=== PATIENT | female | born 1970 | race Hispanic/Latino ===

== ENCOUNTER → 2020-06-24 | Outpatient (CLI) | payer OTHER ==
[~2020-06-24] MED LIST: CALCIUM CARBON500 MG PO; LEVOTHYROXINE50 MCG PO; LIPITOR10 MG PO; METFORMIN HCL500 MG PO; MULTI-VITAMIN1 EACH PO
== END ==
LOC: US 12:59
PROVIDERS: ATTEND Otolaryngology
DX: E04.2 Nontoxic multinodular goiter (principal)
CPT/HCPCS: 76536

== ENCOUNTER → 2020-07-08 | Outpatient (CLI) | payer OTHER | LOC: US 11:10 | PROVIDERS: ATTEND Otolaryngology | DX: E04.2 Nontoxic multinodular goiter (principal) | CPT/HCPCS: 10005; 88172; 88173; 88305 ==

== ENCOUNTER → 2020-07-27 | Outpatient (CLI) | payer OTHER ==
[~2020-07-27] MED LIST changes: -CALCIUM CARBON500 MG PO; +IOPAMIDOL 370 MG/ML 200 ML INFUS..BTL INJ ONE; -LEVOTHYROXINE50 MCG PO; -LIPITOR10 MG PO; -METFORMIN HCL500 MG PO; -MULTI-VITAMIN1 EACH PO; +SODIUM CHLORIDE 0.9% 50ML 50 ML ONE
[2020-07-27 11:53] LABS: BLOOD UREA NITROGEN 8 mg/dL (7-26); BUN/CREATININE RATIO 12 (6-25); CREATININE, SERUM 0.66 mg/dL (0.57-1.11); EST GLOMERULAR FILTRATION RATE > 60 ML/MIN (60-)
--- NOTE | 2020-07-27 14:17 | Diagnostic Imaging Report ---
ADDENDUM #1 Incidental aberrant left subclavian artery. Signed by: Dr. Catina Ballard M.D. on 07/27/2020 2:36 PM ORIGINAL REPORT Examination:CT SOFT TISSUE NECK W History: MULTIPLE THYROID NODULES Comparison studies: Thyroid US dated 06/24/2020 Technique: Axial images from the skull base to the thoracic inlet Coronal and sagittal reformatted images. Dose modulation, iterative reconstruction, and/or weight based adjustment of the mA/kV was utilized to reduce the radiation dose to as low as reasonably achievable. Intravenous contrast: 100mL of Isovue 370. Findings: Soft tissues: No abnormalities. Aerodigestive tract: No abnormality. Lymph nodes: No radiographically significant adenopathy. Vessels: Arteries and veins are patent. Thyroid gland: Normal in size with a 2.7 x 1.5 x 2.6cm (superoinferior x anteroposterior x transverse dimensions) hypodense lesion of the isthmus and right thyroid lobe. Submandibular glands: Normal in size and homogeneous. Parotid glands: Normal in size and homogeneous. Orbits: No abnormalities. Paranasal sinuses: Clear. Temporal bones: No abnormalities. Skull base and facial bones: Intact. Cervical spine: Bilateral uncovertebral at C5-C6 without foraminal stenosis. The cervical levels demonstrate no disc bulge or herniation or foraminal or canal stenosis. Visualized lung apices: No abnormalities. IMPRESSION: Right thyroid lobe and isthmus 2.7 x 1.5 x 2.6cm nodule. No concerning adenopathy. Signed by: Dr. Catina Ballard M.D. on 07/27/2020 2:14 PM
== END ==
LOC: CT 11:16
PROVIDERS: ATTEND Otolaryngology
DX: E04.2 Nontoxic multinodular goiter (principal)
CPT/HCPCS: 36415; 70491; 82565; 84520; Q9967

== ENCOUNTER 2020-08-23 10:16 | Observation (INO) | payer OTHER ==
[2020-08-18 10:53] LABS: BASOPHILS # (AUTO) 0.1 (0.0-0.1); BASOPHILS % 0.9 % (0.0-1.0); EOSINOPHILS # (AUTO) 0.2 (0.0-0.4); EOSINOPHILS % 2.4 % (0.0-6.0); HEMOGLOBIN 11.3 g/dL (12.0-16.0); LYMPHOCYTES # (AUTO) 1.9 (1.0-3.2); LYMPHOCYTES % 23.3 % (18.0-39.1); MEAN CORPUSCULAR HEMOGLOBIN 24.5 pg (28-32); MEAN CORPUSCULAR HGB CONC 30.5 g/dL (31-35); MEAN CORPUSCULAR VOLUME 80.1 fL (81-99); MONOCYTES # (AUTO) 0.4 (0.2-0.8); MONOCYTES % 5.1 % (4.4-11.3); NEUTROPHILS # (AUTO) 5.6 (2.1-6.9); NEUTROPHILS % 67.9 % (38.7-80.0); PLATELET COUNT 242 x10e3/uL (140-360); RED BLOOD COUNT 4.62 x10e6/uL (3.6-5.1); RED CELL DISTRIBUTION WIDTH 14.3 % (11.7-14.4)
[2020-08-18 11:08] LABS: ANION GAP 11.9 mmol/L (8-16); BLOOD UREA NITROGEN 6 mg/dL (7-26); BUN/CREATININE RATIO 9 (6-25); CALCIUM 9.1 mg/dL (8.4-10.2); CARBON DIOXIDE 27 mmol/L (22-29); CHLORIDE 107 mmol/L (98-107); CREATININE, SERUM 0.67 mg/dL (0.57-1.11); EST GLOMERULAR FILTRATION RATE > 60 ML/MIN (60-); GLUCOSE 92 mg/dL (74-118); POTASSIUM 3.9 mmol/L (3.5-5.1); SODIUM 142 mmol/L (136-145)
[~2020-08-23] VITALS: Ht 144.8 cm; Wt 82.1 kg
[~2020-08-23 10:16] MED LIST changes: -IOPAMIDOL 370 MG/ML 200 ML INFUS..BTL INJ ONE; +LIPITOR10 MG PO; +METFORMIN HCL500 MG PO; +MULTI-VITAMIN1 EACH PO; -SODIUM CHLORIDE 0.9% 50ML 50 ML ONE
[2020-08-23] MEDS ORDERED: ACETAMINOPHEN 1000 MG/100 ML 100 ML IV ONE (11:52)
[2020-08-23] MEDS ORDERED: LIDOCAINE 1% W/EPINEPHRINE 20 ML VIAL ONE (11:59)
[2020-08-23] MEDS ORDERED: SEVOFLURANE INHAL SOLN 250 ML PEN BTL ONE (12:22)
[2020-08-23] MEDS ORDERED: DEXAMETHASONE SOD PHOS INJ 4 MG/ML VIAL ONE (12:22)
[2020-08-23] MEDS ORDERED: CEFAZOLIN SOD 1 GM VIAL ONE (12:22)
[2020-08-23] MEDS ORDERED: ONDANSETRON HCL INJ 2MG/ML 2ML 2 MG/ML VIAL ONE (12:22)
[2020-08-23] MEDS ORDERED: PHENYLEPHRINE HCL 1% 10 MG/ML VIAL ONE (12:22)
[2020-08-23] MEDS ORDERED: ROCURONIUM BROMIDE 10 MG/ML 5ML VIAL IV ONE (12:22)
[2020-08-23] MEDS ORDERED: LIDOCAINE HCL 2% LOCAL INJ 5 ML SDV VIAL INJ ONE (12:22)
[2020-08-23] MEDS ORDERED: SUCCINYLCHOLINE CHLORIDE 20 MG/ML 10ML VIAL ONE (12:22)
[2020-08-23] MEDS ORDERED: PROPOFOL IV EMULSION 10 MG/ML 20 ML VIAL ONE (12:22)
[2020-08-23] MEDS ORDERED: MIDAZOLAM HCL 2 MG/2 ML VIAL ONE (12:39)
[2020-08-23] MEDS ORDERED: FENTANYL CITRATE/PF 100MCG/2 ML INJ ONE ×2 (12:39→17:13)
[2020-08-23] MEDS ORDERED: HYDROMORPHONE 1MG/1ML INJ ONE (16:48)
[2020-08-23 17:34] VITALS: BP 114/72
[2020-08-23 17:40] VITALS: BP 121/80
[2020-08-23 18:39] VITALS: BP 121/80
[2020-08-23 18:42] VITALS: BP 121/80
[2020-08-23] MEDS ORDERED: ONDANSETRON HCL INJ 2MG/ML 2ML 2 MG/ML VIAL IV PRN (19:15)
[2020-08-23] MEDS ORDERED: HYDROCODONE/APAP 5MG-325MG TAB PO PRN (19:15)
[2020-08-23 20:00] VITALS: BP 123/71
[2020-08-23] MEDS ORDERED: CEFAZOLIN SOD 1 GM/NS 50ML 50 ML IV SCH (20:00)
[2020-08-23] MEDS: SOD CHL 0.45%/POT CHL 20MEQ 1,000 ML IV SCH (20:20)
[2020-08-23 21:00] VITALS: BP 123/71
[2020-08-24] MEDS: CALCIUM CARBONATE 500 MG CHEWABLE TABS PO SCH ×2 (00:10→05:30)
[2020-08-24 00:23] VITALS: BP 123/79
[2020-08-24] MEDS ORDERED: MORPHINE SULFATE INJ 4 MG/ML INJ 1ML IV PRN (01:15)
[2020-08-24] MEDS ORDERED: MORPHINE SULFATE 2 MG/ML SYR 1ML IV PRN (01:15)
[2020-08-24] MEDS: HYDROCODONE/APAP 5MG-325MG TAB PO PRN ×2 (02:32→08:31)
[2020-08-24] MEDS ORDERED: CEFAZOLIN SOD 1 GM VIAL IV SCH (04:00)
[2020-08-24] MEDS ORDERED: CEFAZOLIN SOD 1 GM/NS 50ML 50 ML IV SCH ×2 (04:00→13:00)
[2020-08-24] MEDS: SOD CHL 0.45%/POT CHL 20MEQ 1,000 ML IV SCH (04:00)
[2020-08-24 04:36] VITALS: BP 112/77
[2020-08-24 07:26] VITALS: BP 111/84
[2020-08-24 07:30] VITALS: BP 111/84
[2020-08-24] MEDS ORDERED: CALCIUM CARBON500 MG PO (08:19)
[2020-08-24] MEDS ORDERED: LEVOTHYROXINE50 MCG PO (08:20)
[2020-08-24] MEDS ORDERED: MULTIVITAMINS/MINERALS TAB PO SCH (09:00)
[2020-08-24] MEDS ORDERED: METFORMIN HCL 500 MG TAB PO SCH (09:00)
[2020-08-24] MEDS ORDERED: ATORVASTATIN 10 MG TAB PO SCH (21:00)
== END 2020-08-24 09:37 | disposition home or self-care (01) ==
LOC: OR 10:16 → PACU V 16:18 → MED/SURG 17:50
PROVIDERS: ADMIT Otolaryngology; ATTEND Otolaryngology
DX: C73 Malignant neoplasm of thyroid gland (principal); J45.909 Unspecified asthma, uncomplicated; F41.9 Anxiety disorder, unspecified; Z20.828 Contact with and (suspected) exposure to other viral communicable diseases; Z01.818 Encounter for other preprocedural examination
CPT/HCPCS: 36415 ×3; 60254; 80048; 81025; 82040 ×2; 82310 ×2; 82948; 85025; 88172; 88173; 88309; 88331; 93005; G0378 ×2; J0131; J0330; J0690 ×3; J1100; J1170; J2001; J2250; J2270; J2370; J2405; J2704; J3010; U0002; 88305